=== PATIENT | male | born 1985 | race Caucasian/White ===

== ENCOUNTER 2018-06-07 14:30 | Emergency (ER) | payer MEDICAID ==
[~2018-06-07] VITALS: Ht 180.3 cm; Wt 117.9 kg
[~2018-06-07 14:30] MED LIST: ASEN10TA9 SL; CIPR500T78 PO; CYMBALTA IM; DOXY100C42 PO; INDO25CA PO; INVEGA; LORA1TAB PO; TRAM50TA2 PO
--- OUTSIDE RECORDS SUMMARY | 2018-06-07 14:35 | XMS REPORT ---
Author Author MARCIA FUNES Organization [employer] Address Unknown Phone Unavailable Care Team Providers Care Vacuum Metalizing Supervisor Name Role Phone MARCIA FUNES CP Unavailable Allergies No Known Allergies Problems Problem Type Condition ICD-9 Code Onset Dates Condition Status Problem Dizziness and giddiness 780.4 Active Problem Chronic hepatitis C without mention of hepatic coma 070.54 Active Problem Unspecified prostatitis 601.9 Active Assessment Chronic hepatitis C without mention of hepatic coma 070.54 Active Problem Reflux esophagitis 530.11 Active Problem Epistaxis 784.7 Active Medications No Known Medications Results No Known Results Summary Purpose [employer] Submission
--- OUTSIDE RECORDS SUMMARY | 2018-06-07 14:35 | XMS REPORT ---
Author Author MARCIA FUNES Organization [facility] [place] [facility] Address [address] [place] [address] Care Team Providers Care Senior Officer Name Role Phone MARCIA FUNES Unavailable PROBLEMS Type Condition ICD9-CM Code DBA02-IP Code Onset Dates Condition Status SNOMED Code Problem Prediabetes R73.03 Active 412171747 Problem Slow transit constipation K59.01 Active 80917799 Problem Gastroesophageal reflux disease without esophagitis K21.9 Active 812484883 Problem Chronic hepatitis C without hepatic coma B18.2 Active 318811962 ALLERGIES No Known Allergies ENCOUNTERS Encounter Location Date Diagnosis [address] [address] Jan, Chronic hepatitis C without hepatic coma B18.2 ; Elevated glucose R73.09 ; BMI 40.0-44.9, adult Z68.41 and Prediabetes R73.[address] [address] Feb, [address] [address] Nov, Slow transit constipation K59.[address] [address] Oct, Chronic hepatitis C without hepatic coma B18.2 and Gastroesophageal reflux disease without esophagitis K21.9 [facility] [address] [id number] Aug, Dental caries K02.9 [facility] [id number] [place] [id number] Jun, Dental examination Z01.[address] [address] Mar, Dysuria R30.0 [facility] [place] [facility] [id number] [place] [address]- [address] Feb, Gastroesophageal reflux disease without esophagitis K21.9 and Chronic hepatitis C without hepatic coma B18.2 [facility] [place] [facility] [id number] [place] [address]- 2[address] Mar, [facility] [place] [facility] [id number] [place] [address]- 0926 Mar, Chronic hepatitis C without mention of hepatic coma 070.54 [facility] [place] [facility] [id number] [place] [address]- 4387 Mar, [facility] [place] [facility] [id number] [place] [address] 47067- 4782 Nov, [facility] [place] [facility] [id number] [place] [address] 70397- 3487 Nov, [facility] [place] [facility] [id number] [place] [address] 0[address]74- 1415 Sep, [facility] [place] [facility] [id number] [place] [address] 80842- 9782 Sep, [facility] [place] [facility] [address] [address] Sep, 2014 [facility] [place] [facility] [id number] [place] [address] 05735- 8603 Sep, [facility] [place] [facility] [address] [address] 6[address] Jul, [facility] [place] [facility] [id number] [place] [address] 567194- 8737 Jul, [facility] [place] [facility] [address] [address] Jul, [facility] [place] [facility] [id number] [place] [address] 585010- 4560 Jul, [facility] [place] [facility] [address] [id number] [place] [address] 0663 Jul, [facility] [place] [facility] [address] [id number] [place] [address]- 1445 Jul, [facility] [place] [facility] [address] [id number] [place] [address]- 0929 Jul, [facility] [place] [facility] [address] [id number] [place] [address]- 2859 Jul, [facility] [place] [facility] [address] [id number] [place] [address]- 1003 Jul, [facility] [place] [facility] [address] [id number] [place] [address]- 3624 Jul, [facility] [place] [facility] [address] [id number] [place] [address]- 4883 Jul, [facility] [place] [facility] [address] [id number] [place] [address]- 2053 Jun, [facility] [place] [facility] [address] [id number] [place] [address]- 6378 Jun, [facility] [place] [facility] [address] [id number] [place] [address]- 0342 Jun, [facility] [place] [facility] [address] [id number] [place] [address]- 6919 Jun, [facility] [place] [facility] [address] [id number] [place] [address]- 7038 Jan, [facility] [place] [facility] [address] [id number] [place] [address]- 6020 Jan, [facility] [place] [facility] [address] [id number] [place] [address]- 7915 Jan, [facility] [place] [facility] [address] [id number] [place] [address]- 0236 Jan, [facility] [place] [facility] [address] [id number] [place] [address]- 2546 December, [facility] [place] [facility] [address] [id number] [place] [address]- 0747 December, [facility] [place] [facility] [address] [id number] [place] [address]- 4587 Oct, [facility] [place] [facility] [address] [id number] [place] [address]- 3011 Oct, [facility] [place] [facility] [address] [id number] [place] [address]- 4270 Oct, [facility] [place] [facility] [address] [id number] [place] [address]- 6198 Oct, [facility] [place] [facility] [address] [id number] [place] [address]- 4092 Jul, [facility] [place] [facility] [address] [id number] [place] [address]- 9756 Jul, [facility] [place] [facility] [address] [id number] [place] [address]- 3804 Jun, [facility] [place] [facility] [address] [id number] [place] [address]- 6400 Jun, [facility] [place] [facility] [address] [id number] [place] [address]- 0741 14 Apr, 2013 [facility] [place] [facility] [address] [id number] [place] [address]- 6459 Apr, [facility] [place] [facility] [address] [id number] [place] [address]- 2507 24 Feb, 2013 [facility] [place] [facility] [address] [id number] [place] [address] Nov, [facility] [place] [facility] [address] [id number] [place] [address] Oct, [facility] [place] [facility] [address] [id number] [place] [address] Oct, [facility] [place] [facility] [address] [address]- 6[address] Sep, [facility] [place] [facility] [address] [address]- 7[address] Jul, [facility] [place] [facility] [address] [address]- 25[address] Jul, [facility] [place] [facility] [address] [address]- 29[address] Jan, [facility] [facility] [address] [address]- 59[address] Nov, [facility] [facility] [address] [address]- 7[address] Nov, [facility] [facility] [address] [address]- 8146 Oct, [facility] [facility] [address] [address]- 2116 Oct, [facility] [facility] [address] [address]- 38[address] Aug, [facility] [facility] [address] [address]- 6[address] Jun, [facility] [facility] [address] [address]- 6[address] Mar, [facility] [facility] [address] [address]- 7[address] December, IMMUNIZATIONS No Known Immunizations SOCIAL HISTORY Never Assessed REASON FOR VISIT CHM, no major concerns-Juan A BORDEN PLAN OF CARE Activity Details Follow Up 1 Year Reason: VITAL SIGNS Height 69 in 2018-02-02 Weight 283.6 lbs 2018-02-02 Temperature 98.3 degrees Fahrenheit 2018-02-02 Heart Rate 86 bpm 2018-02-02 Respiratory Rate 22 2018-02-02 BMI 41.88 kg/m2 2018-02-02 Blood pressure systolic 122 mmHg 2018-02-02 Blood pressure diastolic 82 mmHg 2018-02-02 MEDICATIONS Medication Instructions Dosage Frequency Start Date End Date Duration Status Cymbalta 20 mg Orally as directed 1 capsule Active RESULTS No Results PROCEDURES Procedure Date Ordered Result Body Site GLYCATED HEMOGLOBIN TEST February 02, 2018 LAB NOT BILLED BY [facility] February 02, 2018 INSTRUCTIONS MEDICATIONS ADMINISTERED No Known Medications MEDICAL (GENERAL) HISTORY Type Description Date Medical History heptatitis C Medical History acid reflux Hospitalization History dehydration
--- OUTSIDE RECORDS SUMMARY | 2018-06-07 14:35 | XMS REPORT ---
Author Author MARCIA FUNES Organization [employer] Address Unknown Phone Unavailable Care Team Providers Care Process Controls Technician Name Role Phone MARCIA FUNES CP Unavailable Allergies No Known Allergies Problems Problem Type Condition ICD-9 Code Onset Dates Condition Status Problem Dizziness and giddiness 780.4 Active Problem Chronic hepatitis C without mention of hepatic coma 070.54 Active Problem Unspecified prostatitis 601.9 Active Problem Reflux esophagitis 530.11 Active Problem Epistaxis 784.7 Active Medications No Known Medications Results No Known Results Summary Purpose [employer] Submission
--- OUTSIDE RECORDS SUMMARY | 2018-06-07 14:35 | XMS REPORT ---
Author Author MARCIA FUNES Organization [employer] Address Unknown Phone Unavailable Care Team Providers Care Medical Chief Technician Name Role Phone MARCIA FUNES CP [...]
--- OUTSIDE RECORDS SUMMARY | 2018-06-07 14:36 | XMS REPORT ---
Author Author MARCIA FUNES [facility] [employer] Address Unknown Phone Unavailable Care Team Providers Care Customer Equipment Engineer Name Role Phone MARCIA FUNES CP Unavailable Allergies, Adverse Reactions, Alerts Substance Reaction Event Type N.K.D.A. Info Not Available Non Drug Allergy Problems Problem Type Condition Code Onset Dates Condition Status Assessment Gastroesophageal reflux disease without esophagitis K21.9 Active Assessment Chronic hepatitis C without hepatic coma B18.2 Active Problem Chronic hepatitis C without hepatic coma B18.2 Active Problem Unspecified prostatitis 601.9 Active Problem Gastroesophageal reflux disease without esophagitis K21.9 Active Problem Reflux esophagitis 530.11 Active Problem Epistaxis 784.7 Active Problem Dizziness and giddiness 780.4 Active Problem Chronic hepatitis C without mention of hepatic coma 070.54 Active Medications Medication Code System Code Instructions Start Date End Date Status Dosage Omeprazole [facility] [address]-87 20 mg Oct 14, 2014 take 1 capsule ( 20 mg) by oral route once daily before a meal Cymbalta [facility] [address]-67 20 mg subcutaneously as directed Inject Procedures Procedure Coding System Code Date Office Visit, Est Pt., Level 3 CPT-4 55407 March 09, 2016 VENIPUNCT, ROUTINE* CPT-4 39201 March 09, 2016 LAB NOT BILLED BY [facility] CPT-4 NOBLL March 09, 2016 Vital Signs Date/Time: March 09, 2016 Cardiac Monitoring Heart Rate 90 bpm Weight 262 lbs Height 69 in Blood Pressure Diastolic 88 mmHg Blood Pressure Systolic 140 mmHg Results No Known Results Summary Purpose [employer] Submission
--- OUTSIDE RECORDS SUMMARY | 2018-06-07 14:36 | XMS REPORT ---
Author Author MARCIA FUNES Organization [facility] Address [address] [place] [address] Care Team Providers Care Dust Box Tender Name Role Phone MARCIA FUNES Unavailable PROBLEMS Type Condition ICD9-CM Code VAT96-DQ Code Onset Dates Condition Status SNOMED Code Problem Slow transit constipation K59.01 Active 93156187 Problem Gastroesophageal reflux disease without esophagitis K21.9 Active 098492265 Problem Chronic hepatitis C without hepatic coma B18.2 Active 806994871 ALLERGIES No Information ENCOUNTERS Encounter Location Date Diagnosis [place] [address] [address] Nov, [facility] [address] [address] Feb, [facility] [address] [address]- [address] Nov, Slow transit constipation K59.01 [facility] [address] [address] Oct, Chronic hepatitis C without hepatic coma B18.2 and Gastroesophageal reflux disease without esophagitis K21.9 [facility] [id number] [place] [id number] Aug, Dental caries K02.9 [facility] [address] [id number] Jun, Dental examination Z01.20 [facility] [address] [address]- [address] Mar, Dysuria R30.0 [place] [address] [address] Feb, Gastroesophageal reflux disease without esophagitis K21.9 and Chronic hepatitis C without hepatic coma B18.2 [facility] [address] [address]- 27[address] Mar, [facility] [id number] [place] [address]- 5947 Mar, Chronic hepatitis C without mention of hepatic coma 070.54 [facility] [id number] [place] [address]- 0206 Mar, [facility] [address] [address]- 15[address] Nov, [facility] [id number] [place] [address] 18125- 7598 Nov, [facility] [id number] [place] [address] 39763- 6760 Sep, [facility] [id number] [place] [address] 92725- 5344 Sep, [facility] [address] [address]- 0443 Sep, [facility] [id number] [address]- 7091 Sep, [facility] [id number] [address]- 0726 Jul, [facility] [id number] [address]- 7473 Jul, [facility] [id number] [address]- 7056 Jul, [facility] [id number] [place] [address]- 6634 Jul, [facility] [id number] [address]- 0605 Jul, [facility] [id number] [address]- 2329 Jul, [facility] [place] [facility] [address] [id number] [place] [address]- 2163 Jul, [facility] [place] [facility] [address] [id number] [place] [address]- 4835 Jul, [facility] [place] [facility] [address] [id number] [place] [address] Jul, [facility] [place] [facility] [address] [id number] [place] [address]- 8379 Jul, [facility] [place] [facility] [address] [id number] [place] [address]- 4429 Jul, [facility] [place] [facility] [address] [id number] [place] [address]- 3082 Jun, [facility] [place] [facility] [address] [id number] [place] [address]- 5916 Jun, [facility] [place] [facility] [address] [id number] [place] [address]- 7777 Jun, [facility] [place] [facility] [address] [id number] [place] [address]- 6811 Jun, [facility] [place] [facility] [address] [id number] [place] [address]- 9780 Jan, [facility] [place] [facility] [address] [id number] [place] [address]- 7969 Jan, [facility] [place] [facility] [address] [id number] [place] [address]- 2520 Jan, [facility] [place] [facility] [address] [id number] [place] [address]- 9708 Jan, [facility] [place] [facility] [address] [id number] [place] [address]- 1098 December, [facility] [place] [facility] [address] [id number] [place] [address]- 5755 December, [facility] [place] [facility] [address] [id number] [place] [address]- 6505 12 Oct, 2013 [facility] [address] [id number] [place] [address]- 4578 Oct, [facility] [address] [id number] [place] [address]- 8094 Oct, [facility] [address] [id number] [place] [address]- 6855 Oct, [facility] [address] [id number] [place] [address]- 6514 Jul, [facility] [address] [id number] [place] [address] Jul, [facility] [address] [id number] [place] [address]- 0411 Jun, [facility] [address] [id number] [place] [address]- 6346 Jun, [facility] [address] [id number] [place] [address]- 6132 14 Apr, 2013 [facility] [address] [id number] [place] [address]- 2208 Apr, [facility] [address] [id number] [place] [address]- 0061 24 Feb, 2013 [facility] [address] [id number] [place] [address]- 4838 Nov, [facility] [address] [id number] [place] [address]- 8657 Oct, [facility] [address] [id number] [place] [address]- 4242 Oct, [facility] [address] [id number] [place] [address]- 8500 Sep, [facility] [address] [id number] [place] [address]- 9816 Jul, [facility] [id number] [address]- [address] Jul, [facility] [address] [address]- 25[address] Jan, [facility] [id number] [address]- 2866 Nov, [facility] [address] [address]- 2546 Nov, [facility] [id number] [address]- 8416 Oct, [facility] [address] [address]- 2546 Oct, [facility] [id number] [address]- 9466 Aug, [facility] [address] [address]- 8576 Jun, [facility] [id number] [address]- 6[address] Mar, [facility] [id number] [address]- 8[address] December, IMMUNIZATIONS No Known Immunizations SOCIAL HISTORY Never Assessed REASON FOR VISIT infected tooth PLAN OF CARE VITAL SIGNS MEDICATIONS Medication Instructions Dosage Frequency Start Date End Date Duration Status Amoxicillin 500 mg Orally 3 times a day 1 capsule 8h Feb, Mar, 07 days Active RESULTS No Results PROCEDURES No Known procedures INSTRUCTIONS MEDICATIONS ADMINISTERED No Known Medications MEDICAL (GENERAL) HISTORY Type Description Date Medical History heptatitis C Medical History acid reflux Hospitalization History dehydration
--- OUTSIDE RECORDS SUMMARY | 2018-06-07 14:36 | XMS REPORT ---
Author Author ARLINE LEÓN [facility] Address Unknown Care Team Providers Care Field Coil Winder Name Role Phone ARLINE LEÓN Unavailable PROBLEMS Type Condition ICD9-CM Code OHR21-TO Code Onset Dates Condition Status SNOMED Code Problem Slow transit constipation K59.01 Active 66298260 Problem Gastroesophageal reflux disease without esophagitis K21.9 Active 431783877 Problem Chronic hepatitis C without hepatic coma B18.2 Active 014195768 ALLERGIES Substance Reaction Event Type Date Status N.K.D.A. Unknown Non Drug Allergy Aug, Unknown SOCIAL HISTORY No smoking Hx information available PLAN OF CARE Activity Details Follow Up prn Reason:PROPHY VITAL SIGNS Height 69 in 2016-09-23 Blood pressure systolic 122 mmHg 2016-09-23 Blood pressure diastolic 90 mmHg 2016-09-23 MEDICATIONS Medication Instructions Dosage Frequency Start Date End Date Duration Status Cymbalta 20 mg Orally as directed 1 capsule Active [place] 5-325 MG Orally every 6 hrs 1 tablet as needed 6h 4 days Active Omeprazole 20 mg take 1 capsule (20 mg) by oral route once daily before a meal Sep, Active Clindamycin HCl 150 MG Orally every 6 hrs 2 capsules 6h 7 days Active RESULTS No Results PROCEDURES Procedure Date Ordered Related Diagnosis Body Site SURG REMOVAL ERUPTED TOOTH Sep 23, 2016 IMMUNIZATIONS No Known Immunizations
--- OUTSIDE RECORDS SUMMARY | 2018-06-07 14:36 | XMS REPORT | Continuity of Care Document ---
Author Author [facility] Address Unknown Phone Unavailable Allergies Active Description Code Type Severity Reaction Onset Reported/Identified Relationship to Patient Clinical Status Yes No Known Drug Allergies [id number] Drug Allergy Unknown N/A 08/04/2010 Medications There is no data. Problems Date Dx Coded Attending Type Code Diagnosis Diagnosed By 01/12/2010 KURT LEES DDS 111.0 TINEA VERSICOLOR 01/12/2010 VICTORINO CHICAS DO 111.0 TINEA VERSICOLOR 01/12/2010 111.0 TINEA VERSICOLOR 01/12/2010 VICTORINO CHICAS DO 111.0 TINEA VERSICOLOR 01/12/2010 RADHA CORNEJO MD 111.0 TINEA VERSICOLOR 01/12/2010 MARCIA FUNES MD 111.0 TINEA VERSICOLOR 01/12/2010 MARIN JUAREZ, MARCIA 111.0 TINEA VERSICOLOR 01/12/2010 MARIN JUAREZ, MARCIA 111.0 TINEA VERSICOLOR 01/12/2010 MARIN JUAREZ, MARCIA 111.0 TINEA VERSICOLOR 01/12/2010 MARIN JUAREZ, MARCIA 111.0 TINEA VERSICOLOR 11/19/2010 KURT LEES DDS 295.00 SIMPLE TYPE SCHIZOPHRENIA UNSPECIFIED STATE 11/19/2010 VICTORINO CHICAS DO 295.00 SIMPLE TYPE SCHIZOPHRENIA UNSPECIFIED STATE 11/19/2010 295.00 SIMPLE TYPE SCHIZOPHRENIA UNSPECIFIED STATE 11/19/2010 VICTORINO CHICAS DO 295.00 SIMPLE TYPE SCHIZOPHRENIA UNSPECIFIED STATE 11/19/2010 RADHA CORNEJO MD 295.00 SIMPLE TYPE SCHIZOP[place]ENIA UNSPECIFIED STATE 11/19/2010 MARCIA FUNES MD 295.00 SIMPLE TYPE SCHIZOPHRENIA UNSPECIFIED STATE 11/19/2010 MARCIA FUNES MD 295.00 SIMPLE TYPE SCHIZOPHRENIA UNSPECIFIED STATE 11/19/2010 MARCIA FUNES MD 295.00 SIMPLE TYPE SCHIZOPHRENIA UNSPECIFIED STATE 11/19/2010 MARCIA FUNES MD 295.00 SIMPLE TYPE [place]IZOPHRENIA UNSPECIFIED STATE 11/19/2010 MARCIA FUNES MD 295.00 SIMPLE TYPE SCHIZOPHRENIA UNSPECIFIED STATE 04/08/2011 NABEEL DDS, KURT E 295.30 P SCHIZO PARANOID UNSPECIFIED 04/08/2011 NABEEL COOKS, KURT E V58.69 MEDICATION HIGH RISK 04/08/2011 HILARY CHICAS DOEN F 295.30 P SCHIZO PARANOID UNSPECIFIED 04/08/2011 JUAN FRANCISCO LYNNE VICTORINO F V58.69 MEDICATION HIGH RISK 04/08/2011 295.30 P SCHIZO PARANOID UNSPECIFIED 04/08/2011 V58.69 MEDICATION HIGH RISK 04/08/2011 HILARY CHICAS DOEN F 295.30 P SCHIZO PARANOID UNSPECIFIED 04/08/2011 VICTORINO CHICAS DO F V58.69 MEDICATION HIGH RISK 04/08/2011 CLEMENTE JUAREZ, RADHA Merchant 295.30 P SCHIZO PARANOID UNSPECIFIED 04/08/2011 RADHA CORNEJO MD V58.69 MEDICATION HIGH RISK 04/08/2011 MARCIA FUNES MD 295.30 P SCHIZO PARANOID UNSPECIFIED 04/08/2011 MARCIA FUNES MD V58.69 MEDICATION HIGH RISK 04/08/2011 MARCIA FUNES MD 295.30 P SCHIZO PARANOID UNSPECIFIED 04/08/2011 MARCIA FUNES MD V58.69 MEDICATION HIGH RISK 04/08/2011 MARCIA FNUES MD 295.30 P SCHIZO PARANOID UNSPECIFIED 04/08/2011 MARCIA FUNES MD V58.69 MEDICATION HIGH RISK 04/08/2011 MARCIA FUNES MD 295.30 P SCHIZO PARANOID UNSPECIFIED 04/08/2011 MARCIA FUNES MD V58.69 MEDICATION HIGH RISK 04/08/2011 MARCIA FUNES MD 295.30 P SCHIZO PARANOID UNSPECIFIED 04/08/2011 MARCIA FUNES MD V58.69 MEDICATION HIGH RISK 07/27/2011 NABEEL MORRIS, KURT E 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 07/27/2011 JUAN FRANCISCO LYNNE VICTORINO F 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 07/27/2011 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 07/27/2011 JUAN FRANCISCO LYNNE VICTORINO F 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 07/27/2011 RADHA CORNEJO MD 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 07/27/2011 MARCIA FUNES MD 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 07/27/2011 MARCIA FUNES MD 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 07/27/2011 MARCIA FUNES MD 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 07/27/2011 MARCIA FUNES MD 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 07/27/2011 MARCIA FUNES MD 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 10/28/2011 NABEEL DDS, KURT E 601.9 PROSTATITIS UNSPECIFIED 10/28/2011 VICTORINO CHICAS DO 601.9 PROSTATITIS UNSPECIFIED 10/28/2011 601.9 PROSTATITIS UNSPECIFIED 10/28/2011 VICTORINO CHICAS DO F 601.9 PROSTATITIS UNSPECIFIED 10/28/2011 RADHA CORNEJO MD 601.9 PROSTATITIS UNSPECIFIED 10/28/2011 MARCIA FUNES MD 601.9 PROSTATITIS UNSPECIFIED 10/28/2011 MARCIA FUNES MD 601.9 PROSTATITIS UNSPECIFIED 10/28/2011 MARCIA FUNES MD 601.9 PROSTATITIS UNSPECIFIED 10/28/2011 MARCIA FUNES MD 601.9 PROSTATITIS UNSPECIFIED 10/28/2011 MARCIA FUNES MD 601.9 PROSTATITIS UNSPECIFIED 08/05/2012 Ot 782.2 08/18/2012 Ot 305.1 08/18/2012 Ot 786.50 08/18/2012 Ot 786.52 09/07/2012 Ot 597.80 09/07/2012 Ot 788.7 10/10/2013 SHANICE STEVENS Ot 883.0 10/10/2013 SHANICE STEVENS Ot E000.8 10/10/2013 SHANICE STEVENS Ot E015.0 10/10/2013 SHANICE STEVENS Ot E849.0 10/10/2013 SHANICE STEVENS Ot E920.8 10/10/2013 SHANICE STEVENS Ot V06.1 11/02/2013 RADHA CORNEJO MD Ot 070.70 11/02/2013 RADHA CORNEJO MD Ot 276.51 11/02/2013 RADHA CORNEJO MD Ot 305.00 11/02/2013 RADHA CORNEJO MD Ot 305.1 11/02/2013 RADHA CORNEJO MD Ot 305.20 11/02/2013 RADHA CORNEJO MD Ot 305.73 11/02/2013 RADHA CORNEJO MD Ot 571.8 11/02/2013 RADHA CORNEJO MD Ot 782.4 11/02/2013 RADHA CORNEJO MD Ot 787.01 05/22/2014 JOSÉ LUIS LYNNE KESHAWN Ronald Ot 788.1 05/22/2014 KESHAWN ORDONEZ DO Ot 789.09 07/01/2014 MARCIA FUNES MD 780.4 DIZZINESS AND GIDDINESS 07/01/2014 MARCIA FUNES MD 780.4 DIZZINESS AND GIDDINESS 07/01/2014 MARCIA FUNES MD 780.4 DIZZINESS AND GIDDINESS 07/01/2014 MARCIA FUNES MD 780.4 DIZZINESS AND GIDDINESS 08/06/2014 MARCIA FUNES MD 070.54 HEPATITIS C CHRONIC 08/06/2014 MARCIA FUNSE MD 070.54 HEPATITIS C CHRONIC 08/19/2015 JULITA JUAREZ, LOPEZ Parson Ot F17.210 08/19/2015 LOPEZ CANCINO MD Ot J02.9 08/19/2015 LOPEZ CANCINO MD Ot J40 08/19/2015 LOPEZ CANCINO MD Ot R11.10 Procedures Code Description [place] [address] ROUTINE VENIPUNCTURE 11/16/2012 21900 LIPID PANEL 11/16/2012 58461 GLUCOSE 11/16/2012 85979 ROUTINE VENIPUNCTURE 07/01/2014 08734 A1C (IN-HOUSE) 07/01/2014 45872 CBC 07/01/2014 0210703 GFR CALC (RESULT ONLY) 07/01/2014 38597 CMP 07/01/2014 34399 ROUTINE VENIPUNCTURE 08/07/2014 04916 LIPID PANEL 08/07/2014 57826 LIPASE 08/07/2014 11024 PT/INR 08/07/2014 61467 HIV ANTIBODIES (RML) 08/07/2014 57220 HEP C PCR QUANT W/TONYA 08/09/2014 17129 AMERITOX 08/12/2014 85966 GENOTYPE DNA HEPATITIS C 08/12/2014 Results Test Result Range Comp. Metabolic Panel (14) - 11/11/16 11:28 Glucose, Serum 126 mg/dL 65-99 BUN 10 mg/dL 6-20 Creatinine, Serum 1.16 mg/dL 0.76-1.27 eGFR If NonAfricn Am 84 mL/min/1.73 >59 eGFR If Africn Am 97 mL/min/1.73 >59 BUN/Creatinine Ratio 9 8-19 Sodium, Serum 140 mmol/L 134-144 Potassium, Serum 4.3 mmol/L 3.5-5.2 Chloride, Serum 100 mmol/L 96-106 Carbon Dioxide, Total 19 mmol/L 18-29 Calcium, Serum 9.6 mg/dL 8.7-10.2 Protein, Total, Serum 7.0 g/dL 6.0-8.5 Albumin, Serum 4.4 g/dL 3.5-5.5 Globulin, Total 2.6 g/dL 1.5-4.5 A/G Ratio 1.7 1.2-2.2 Bilirubin, Total 0.7 mg/dL 0.0-1.2 Alkaline Phosphatase, S 99 IU/L 39-117 AST (SGOT) 132 IU/L 0-40 ALT (SGPT) 263 IU/L 0-44 CMP - 02/02/18 11:12 GLUCOSE 90 mg/dL 65-99 UREA NITROGEN (BUN) 14 mg/dL 7-25 CREATININE 1.14 mg/dL 0.60-1.35 eGFR NON-AFR. [place] 85 mL/min/1.73m2 > OR=60 eGFR 99 mL/min/1.73m2 > OR=60 BUN/CREATININE RATIO NOT APPLICABLE (calc) 6-22 SODIUM 140 mmol/L 135-146 POTASSIUM 4.0 mmol/L 3.5-5.3 CHLORIDE 104 mmol/L 98-110 CARBON DIOXIDE 25 mmol/L 20-31 CALCIUM 10.1 mg/dL 8.6-10.3 PROTEIN, TOTAL 7.7 g/dL 6.1-8.1 ALBUMIN 4.7 g/dL 3.6-5.1 GLOBULIN 3.0 g/dL (calc) 1.9-3.7 ALBUMIN/GLOBULIN RATIO 1.6 (calc) 1.0-2.5 BILIRUBIN, TOTAL 0.8 mg/dL 0.2-1.2 ALKALINE PHOSPHATASE 94 U/L 40-115 AST 165 U/L 10-40 ALT 328 U/L 9-46 Encounters ACCT No. Visit Date/Time Discharge Status Pt. Type Provider Facility Loc./Unit Complaint [id number] 08/19/2014 15:01:00 08/19/2014 23:59:59 CLS Outpatient MARCIA FUNES MD [id number] 08/07/2014 10:46:00 08/07/2014 23:59:59 CLS Outpatient MARCIA FUNES MD [id number] 07/01/2014 15:10:00 07/01/2014 23:59:59 CLS Outpatient MARCIA FUNES MD [id number] 07/01/2014 15:10:00 07/01/2014 23:59:59 CLS Outpatient MARCIA FUNES MD [id number] 02/22/2014 14:59:00 02/22/2014 23:59:59 CLS Outpatient MARCIA FUNES MD [id number] 12/05/2013 16:19:00 12/05/2013 23:59:59 CLS Outpatient RADHA CORNEJO MD [id number] 05/12/2013 11:55:00 05/12/2013 23:59:59 CLS Outpatient VICTORINO CHICAS DO [id number] 11/16/2012 15:27:00 11/16/2012 23:59:59 CLS Outpatient VICTORINO CHICAS DO [id number] 01/04/2012 13:39:00 01/04/2012 23:59:59 CLS Outpatient KURT LEES DDS [id number] 12/20/2012 14:38:00 Document Registration [id number] 08/19/2015 08:44:00 08/19/2015 09:20:00 DIS Emergency LOPEZ CANCINO MD [facility] ER [id number] 05/22/2014 11:13:00 05/22/2014 13:51:00 DIS Emergency KESHAWN ORDONEZ DO [facility] ER [id number] 11/01/2013 12:36:00 11/02/2013 13:00:00 DIS Inpatient RADHA CORNEJO MD [address] [id number] 10/10/2013 14:52:00 10/10/2013 16:38:00 DIS Emergency KELLY BUTLER, SHANICE Wu [facility] [id number] 09/07/2012 10:20:00 Document Registration [id number] 08/18/2012 16:26:00 Document Registration [id number] 08/05/2012 11:42:00 Document Registration [id number] 11/12/2016 08:37:00 Document Registration [id number] 02/02/2018 10:20:00 02/02/2018 23:59:59 CLS Out[facility] MARIN [facility] [place] [id number] 02/02/2018 10:20:00 Document Registration
--- OUTSIDE RECORDS SUMMARY | 2018-06-07 14:36 | XMS REPORT ---
Author Author ARLINE LEÓN [facility] Address Unknown Care Team Providers Care Parachute Cushion Installer Name Role Phone ARLINE LEÓN Unavailable PROBLEMS Type Condition ICD9-CM Code IGI27-CV Code Onset Dates Condition Status SNOMED Code Problem Slow transit constipation K59.01 Active 54804426 Problem Gastroesophageal reflux disease without esophagitis K21.9 Active 158316742 Problem Chronic hepatitis C without hepatic coma B18.2 Active [id number] ALLERGIES Substance Reaction Event Type Date Status N.K.D.A. Unknown Non Drug Allergy Jun, Unknown SOCIAL HISTORY No smoking Hx information available PLAN OF CARE Activity Details Follow Up prn Reason:surgical extraction #30 1 hour VITAL SIGNS MEDICATIONS Medication Instructions Dosage Frequency Start Date End Date Duration Status Omeprazole 20 mg take 1 capsule (20 mg) by oral route once daily before a meal Sep, Active [place] 5-325 MG Orally every 6 hrs 1 tablet as needed 6h 4 days Active Clindamycin HCl 150 MG Orally every 6 hrs 2 capsules 6h 7 days Active Cymbalta 20 mg Orally as directed 1 capsule Active RESULTS No Results PROCEDURES Procedure Date Ordered Related Diagnosis Body Site LTD ORAL EVALUATION - PROBLEM FOCUS Jul 15, 2016 INTRAORL-PERIAPICAL 1 FILM 77795 Jul 15, 2016 BITEWING - SINGLE FILM Jul 15, 2016 IMMUNIZATIONS No Known Immunizations
--- OUTSIDE RECORDS SUMMARY | 2018-06-07 14:36 | XMS REPORT ---
Author Author MARCIA FUNES [facility] Address [address] [place] [address] Care Team Providers Care Fig Bar Machine Operator Name Role Phone MARCIA FUNES Unavailable PROBLEMS Type Condition ICD9-CM Code FEC10-NB Code Onset Dates Condition Status SNOMED Code Problem Slow transit constipation K59.01 Active 21323921 Problem Gastroesophageal reflux disease without esophagitis K21.9 Active 060084356 Problem Chronic hepatitis C without hepatic coma B18.2 Active 742008165 ALLERGIES No Known Allergies SOCIAL HISTORY Never Assessed PLAN OF CARE Activity Details Follow Up 1 Year Reason: VITAL SIGNS Height 69 in 2016-11-11 Weight 257.4 lbs 2016-11-11 Temperature 98.5 degrees Fahrenheit 2016-11-11 Heart Rate 68 bpm 2016-11-11 Respiratory Rate 20 2016-11-11 BMI 38.01 kg/m2 2016-11-11 Blood pressure systolic 126 mmHg 2016-11-11 Blood pressure diastolic 72 mmHg 2016-11-11 MEDICATIONS Medication Instructions Dosage Frequency Start Date End Date Duration Status Omeprazole 20 mg take 1 capsule (20 mg) by oral route once daily before a meal Sep, Active Cymbalta 20 mg Orally as directed 1 capsule Active RESULTS Name Result Date Reference Range [facility] 2016-11-11 Glucose, Serum 126 65-99 BUN 10 6-20 Creatinine, Serum 1.16 0.76-1.27 eGFR If NonAfricn Am 84 >59 eGFR If Africn Am 97 >59 BUN/Creatinine Ratio 9 8-19 Sodium, Serum 140 134-144 Potassium, Serum 4.3 3.5-5.2 Chloride, Serum 100 96-106 Carbon Dioxide, Total 19 18-29 Calcium, Serum 9.6 8.7-10.2 Protein, Total, Serum 7.0 6.0-8.5 Albumin, Serum 4.4 3.5-5.5 Globulin, Total 2.6 1.5-4.5 A/G Ratio 1.7 1.2-2.2 Bilirubin, Total 0.7 0.0-1.2 Alkaline Phosphatase, S 99 39-117 AST (SGOT) 132 0-40 ALT (SGPT) 263 0-44 PROCEDURES Procedure Date Ordered Result Body Site VENIPUNCT, ROUTINE* November 11, 2016 COMPREHEN METABOLIC PANEL November 11, 2016 IMMUNIZATIONS No Known Immunizations MEDICAL (GENERAL) HISTORY Type Description Date Medical History heptatitis C Medical History acid reflux Hospitalization History dehydration
[2018-06-07] MEDS ORDERED: KETOROLAC 60 MG/2 ML VIAL IM ONE (14:45)
[2018-06-07] MEDS ORDERED: ORPHENADRINE 60 MG/2 ML (NORFLEX) AMP IM ONE (14:45)
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
[2018-06-07] MEDS ORDERED: CYCL5TAB PO (14:51)
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
[2018-06-07 16:02] VITALS: BP 136/82
== END 2018-06-07 16:02 | disposition home or self-care (01) ==
LOC: EDUNIT# 14:30 → ER 14:31
DX: S16.1XXA Strain of muscle, fascia and tendon at neck level, initial encounter (principal); R40.2142 Coma scale, eyes open, spontaneous, at arrival to emergency department; R40.2252 Coma scale, best verbal response, oriented, at arrival to emergency department; R40.2362 Coma scale, best motor response, obeys commands, at arrival to emergency department; V43.53XA Car driver injured in collision with pick-up truck in traffic accident, initial encounter
CPT/HCPCS: 72072; 72125

== ENCOUNTER 2020-07-27 07:13 | Emergency (ER) | payer MEDICAID ==
[~2020-07-27] VITALS: Ht 175 cm; Wt 113.0 kg
[~2020-07-27 07:13] MED LIST changes: +CYCL5TAB PO
[2020-07-27] MEDS ORDERED: LACTATED RINGERS 1,000 ML IV ONE (07:27)
[2020-07-27] MEDS ORDERED: KETOROLAC 30 MG/ML VIAL IVP STA (07:27)
--- NOTE | 2020-07-27 07:38 | ED General ---
General Chief Complaint: Chest Pain Stated Complaint: CHEST PAIN Nursing Triage Note: ARRIVED VIA EMS FROM HOME WITH COMPLAINTS OF CP AND SOA FOR X2 WEEKS. RECENTLY DX WITH HEP C. Nursing Sepsis Screen: No Definite Risk Source of Information: Patient Exam Limitations: No Limitations History of Present Illness Date Seen by Provider: Jul 27, 2020 Time Seen by Provider: 07:15 Initial Comments Here with report of left upper chest wall pain that is sharp and has been going on for 2 weeks. Started treatment for hepatitis C 2 weeks ago. Woke up this morning short of breath and states that he is feeling weak and dizzy. Also noted to have low-grade fever by EMS. Patient denies contact with COVID-19 but does admit that he does go out in the community. Denies nausea, vomiting or sweating. Denies other complaints. He has not taken anything for the fever or chest discomfort. Timing/Duration: 12 Hours (Shortness of air), Other (Chest discomfort) Severity: Mild Associated Systoms: Chest Pain; No Cough; Fever/Chills; No Headaches; Shortness of Air, Weakness Allergies and Home Medications Allergies Coded Allergies: No Known Drug Allergies (Unverified , 08/04/10) Home Medications Cyclobenzaprine HCl 5 Mg Tablet, 5 MG PO TID Prescribed by: REJI LUNA on 06/07/18 1451 Doxycycline Monohydrate 100 Mg Capsule, 100 MG PO BID Prescribed by: LOPEZ CANCINO on 08/19/15 0908 [Cymbalta] , Unknown Dose IM MONTHLY, (Reported) Patient Home Medication List Home Medication List Reviewed: Yes Review of Systems Review of Systems Constitutional: see HPI, dizziness, fever, weakness EENTM: no symptoms reported Respiratory: short of breath Cardiovascular: chest pain; No edema Gastrointestinal: No abdominal pain, No nausea, No vomiting Genitourinary: no symptoms reported Musculoskeletal: No back pain; muscle pain Skin: no symptoms reported Psychiatric/Neurological: No Symptoms Reported Hematologic/Lymphatic: No Symptoms Reported All Other Systems Reviewed Negative Unless Noted: Yes Past Juwpgrf-Hwqmuy-Vsylct Hx Past Med/Social Hx: Reviewed Nursing Past Med/Soc Hx Patient Social History Alcohol Use: Denies Use Recreational Drug Use: No Smoking Status: Current Everyday Smoker Type Used: Cigarettes Recent Foreign Travel: No Contact w/Someone Who Travel: No Recent Infectious Disease Expo: No Recent Hopitalizations: No Immunizations Up To Date Tetanus Booster (TDap): More than 5yrs Past Medical History Surgeries: No Respiratory: No Cardiac: No Neurological: No Reproductive Disorders: No Genitourinary: No Gastrointestinal: Yes Hepatitis Musculoskeletal: No Endocrine: No HEENT: No Cancer: No Psychosocial: Yes Bipolar, Schizophrenia, Depression Integumentary: No Blood Disorders: No Family Medical History Patient reports no known family medical history. Physical Exam Vital Signs Vital Signs - First Documented 07/27/20 07:13 Temp 36.6 Pulse 63 Resp 16 B/P (MAP) 136/73 (94) Pulse Ox 96 O2 Delivery Room Air Capillary Refill : Less Than 3 Seconds Height, Weight, BMI Height: 5'11.00" Weight: 260lbs. 10.0oz. 117.602854ic; 36.00 BMI Method:Stated General Appearance: No Apparent Distress, WD/WN HEENT: PERRL/EOMI, Pharynx Normal Neck: Non Tender, Supple Respiratory: Lungs Clear, Normal Breath Sounds Cardiovascular: Regular Rate, Rhythm, No Murmur Gastrointestinal: Non Tender, Soft Back: Normal Inspection, No CVA Tenderness, No Vertebral Tenderness Extremity: Normal Range of Motion, Non Tender Neurologic/Psychiatric: Alert, Oriented x3 Skin: Normal Color, Warm/Dry Progress/Results/Core Measures Suspected Sepsis Recent Fever Within 48 Hours: Yes Infection Criteria Present: Suspected New Infection New/Unexplained Altered Menta: No Sepsis Screen: No Definite Risk SIRS Temperature: Pulse: 63 Respiratory Rate: 16 Laboratory Tests 07/27/20 07:15: White Blood Count 9.2 Blood Pressure 136 /73 Mean: 94 Laboratory Tests 07/27/20 07:15: Creatinine 1.20, Platelet Count 243, Total Bilirubin 0.6 Results/Orders Lab Results Laboratory Tests Test 07/27/20 07:15 Range/Units White Blood Count 9.2 4.3-11.0 10^3/uL Red Blood Count 5.63 H 4.30-5.52 10^6/uL Hemoglobin 16.8 13.3-17.7 g/dL Hematocrit 49 40-54 % Mean Corpuscular Volume 88 80-99 fL Mean Corpuscular Hemoglobin 30 25-34 pg Mean Corpuscular Hemoglobin Concent 34 32-36 g/dL Red Cell Distribution Width 13.1 10.0-14.5 % Platelet Count 243 130-400 10^3/uL Mean Platelet Volume 10.2 9.0-12.2 fL Immature Granulocyte % (Auto) 0 % Neutrophils (%) (Auto) 64 42-75 % Lymphocytes (%) (Auto) 29 12-44 % Monocytes (%) (Auto) 5 0-12 % Eosinophils (%) (Auto) 2 0-10 % Basophils (%) (Auto) 1 0-10 % Neutrophils # (Auto) 5.8 1.8-7.8 10^3/uL Lymphocytes # (Auto) 2.7 1.0-4.0 10^3/uL Monocytes # (Auto) 0.4 0.0-1.0 10^3/uL Eosinophils # (Auto) 0.2 0.0-0.3 10^3/uL Basophils # (Auto) 0.1 0.0-0.1 10^3/uL Immature Granulocyte # (Auto) 0.0 0.0-0.1 10^3/uL D-Dimer 0.33 0.00-0.49 UG/ML Sodium Level 141 135-145 MMOL/L Potassium Level 4.3 3.6-5.0 MMOL/L Chloride Level 107 98-107 MMOL/L Carbon Dioxide Level 20 L 21-32 MMOL/L Anion Gap 14 5-14 MMOL/L Blood Urea Nitrogen 12 7-18 MG/DL Creatinine 1.20 0.60-1.30 MG/DL Estimat Glomerular Filtration Rate > 60 BUN/Creatinine Ratio 10 Glucose Level 187 H 70-105 MG/DL Calcium Level 8.8 8.5-10.1 MG/DL Corrected Calcium 8.7 8.5-10.1 MG/DL Total Bilirubin 0.6 0.1-1.0 MG/DL Aspartate Amino Transf (AST/SGOT) 18 5-34 U/L Alanine Aminotransferase (ALT/SGPT) 23 0-55 U/L Alkaline Phosphatase 96 40-136 U/L Troponin I < 0.028 <0.028 NG/ML C-Reactive Protein High Sensitivity 0.08 0.00-0.50 MG/DL Total Protein 7.2 6.4-8.2 GM/DL Albumin 4.1 3.2-4.5 GM/DL My Orders Orders - KATHARINA ALEXANDER MD Lactated Ringers (Lr 1000 Ml Iv Solution (07/27/20 07:27) Ketorolac Injection (Toradol Injection) (07/27/20 07:27) Cbc With Automated Diff (07/27/20 07:28) Comprehensive Metabolic Panel (07/27/20 07:28) Hs C Reactive Protein (07/27/20 07:28) Fibrin Degradation Products (07/27/20 07:28) Troponin I (07/27/20 07:28) Chest 1 View, Ap/Pa Only (07/27/20 07:28) Ekg Tracing (07/27/20 07:28) Coronavirus Sars-Cov-2 So 2018 (07/27/20 07:28) Medications Given in ED Current Medications Medications Dose Ordered Sig/Rolando Route Start Time Stop Time Status Last Admin Dose Admin Lactated Ringer's 1,000 ml @ 0 mls/hr Q0M ONCE IV 07/27/20 07:27 07/27/20 07:28 DC 07/27/20 07:34 1,000 MLS/HR Vital Signs/I&O 07/27/20 07:13 Temp 36.6 Pulse 63 Resp 16 B/P (MAP) 136/73 (94) Pulse Ox 96 O2 Delivery Room Air Capillary Refill : Less Than 3 Seconds Blood Pressure Mean: 94 Progress Note : Progress Note Seen and evaluated. IV established by EMS. Labs, chest x-ray, EKG, Toradol 30 mg IV and LR 1 L bolus ordered. We will do COVID-19 testing given his history. This was discussed with the patient. He agrees. Monitor patient. 0842: Patient resting comfortably without distress. No significant findings on lab or x-ray or EKG. Discharged home with return precautions. Patient verbalized understanding of instructions and agreement with plan. ECG Initial ECG Impression Date: Jul 27, 2020 Initial ECG Impression Time: 07:22 Initial ECG Rate: 64 Initial ECG Rhythm: Normal Sinus Initial ECG Impression: Normal Initial ECG Comparisson: Unchanged (08/18/2020) Comment Sinus rhythm with normal axis. No evidence of ST elevation ID. Interpreted by me. Diagnostic Imaging Diagonstic Imaging: Xray Plain Films/CT/US/NM/MRI: chest Comments [facility] [place], [place] NAME: ADAM BENITES [facility] REC#: [id number] PT STATUS: REG ER : 1985 PHYSICIAN: KATHARINA ALEXANDER MD ADMIT DATE: 07/27/20/ER Signed Date of Exam:07/27/20 CHEST 1 VIEW, AP/PA ONLY INDICATION: Chest pain. Comparison is made with prior examination from 08/18/2012. FINDINGS: The heart size, mediastinal configuration, and pulmonary vascularity are within normal limits. There is no pleural effusion, pneumothorax, or pneumonia. The osseous structures are unremarkable. IMPRESSION: No acute cardiopulmonary abnormality. Dictated by: Dictated on workstation # [id number] Dict: 07/27/20822 Trans: 07/27/20828 [facility] [id number] Interpreted by: STANLEY MONTERO MD Electronically signed by: STANLEY MONTERO MD 07/27/20828 Departure Impression Primary Impression: Chest pain Qualified Codes: R07.9 - Chest pain, unspecified Additional Impression: Person under investigation for COVID-19 Disposition: 01 HOME, SELF-CARE Condition: Stable Departure-Patient Inst. Decision time for Depature: 08:40 Referrals: [facility][1[facility] [place] (PCP/Family) Primary Care Physician Patient Instructions: Chest Pain (DC), Coronavirus Disease 2019 (COVID-19) (DC) Add. Discharge Instructions: All discharge instructions reviewed with patient and/or family. Voiced understanding. Drink plenty of fluids and get plenty of rest. You will need to remain isolated until test results are noted. If they are negative, you will need remain isolated for 3 days after symptoms resolve. If they are positive, the health department will call you and direct quarantine/isolation timeframe. You may take ibuprofen 600 mg every 8 hours as needed for fever or pain. You may take Tylenol/acetaminophen 1000 mg every 8 hours as needed for fever or pain. Return for worse pain, fever, vomiting, weakness, breathing problems or other concerns as needed. KATHARINA ALEXANDER MD Jul 27, 2020 07:38
[2020-07-27 07:43] LABS: BASOPHILS # (AUTO) 0.1 10^3/uL (0.0-0.1); BASOPHILS % (AUTO) 1 % (0-10); EOSINOPHILS # (AUTO) 0.2 10^3/uL (0.0-0.3); EOSINOPHILS % (AUTO) 2 % (0-10); HEMATOCRIT 49 % (40-54); HEMOGLOBIN 16.8 g/dL (13.3-17.7); LYMPHOCYTES # (AUTO) 2.7 10^3/uL (1.0-4.0); LYMPHOCYTES % (AUTO) 29 % (12-44); MEAN CORPUSCULAR HEMOGLOBIN 30 pg (25-34); MEAN CORPUSCULAR HGB CONC 34 g/dL (32-36); MEAN CORPUSCULAR VOLUME 88 fL (80-99); MEAN PLATELET VOLUME 10.2 fL (9.0-12.2); MONOCYTES # (AUTO) 0.4 10^3/uL (0.0-1.0); MONOCYTES % (AUTO) 5 % (0-12); NEUTROPHILS # (AUTO) 5.8 10^3/uL (1.8-7.8); NEUTROPHILS % (AUTO) 64 % (42-75); PLATELET COUNT 243 10^3/uL (130-400); WHITE BLOOD COUNT 9.2 10^3/uL (4.3-11.0)
[2020-07-27 07:54] LABS: ALBUMIN 4.1 GM/DL (3.2-4.5); CHLORIDE 107 MMOL/L (98-107)
[2020-07-27 07:55] LABS: POTASSIUM 4.3 MMOL/L (3.6-5.0); SODIUM 141 MMOL/L (135-145)
[2020-07-27 07:56] LABS: CALCIUM 8.8 MG/DL (8.5-10.1)
[2020-07-27 07:57] LABS: GLUCOSE 187 MG/DL (70-105); TOTAL PROTEIN 7.2 GM/DL (6.4-8.2)
[2020-07-27 07:58] LABS: CARBON DIOXIDE 20 MMOL/L (21-32)
[2020-07-27 07:59] LABS: BILIRUBIN,TOTAL 0.6 MG/DL (0.1-1.0)
[2020-07-27 08:01] LABS: ALKALINE PHOSPHATASE 96 U/L (40-136); GFR ESTIMATED > 60
[2020-07-27 08:02] LABS: BUN/CREATININE RATIO 10
[2020-07-27 08:04] LABS: ALANINE AMINOTRANSFERASE 23 U/L (0-55)
--- NOTE | 2020-07-27 08:27 | Diagnostic Imaging Report ---
INDICATION: Chest pain. Comparison is made with prior examination from 08/18/2012. FINDINGS: The heart size, mediastinal configuration, and pulmonary vascularity are within normal limits. There is no pleural effusion, pneumothorax, or pneumonia. The osseous structures are unremarkable. IMPRESSION: No acute cardiopulmonary abnormality. Dictated by: Dictated on workstation # [id number]
[2020-07-27 08:48] VITALS: BP 105/62
== END 2020-07-27 08:48 | disposition home or self-care (01) ==
LOC: EDUNIT# 07:13 → ER 07:14
DX: R07.9 Chest pain, unspecified (principal); F32.9 Major depressive disorder, single episode, unspecified; F17.210 Nicotine dependence, cigarettes, uncomplicated; Z20.828 Contact with and (suspected) exposure to other viral communicable diseases
CPT/HCPCS: 71045; 80053; 84484; 85025; 85379; 86141; 93005; 99284; U0002; 36415; 87635

== ENCOUNTER 2021-04-25 15:48 | Emergency (ER) | payer MEDICAID ==
[~2021-04-25] VITALS: Ht 177.8 cm; Wt 113.6 kg
[~2021-04-25 15:48] MED LIST changes: +DOXY-311 PO; -DOXY100C42 PO
[2021-04-25 16:45] LABS: BILIRUBIN,URINE NEGATIVE (NEGATIVE); CLARITY,URINE CLEAR; COLOR,URINE YELLOW; GLUCOSE, URINE (UA) 1+ (NEGATIVE); KETONES,URINE NEGATIVE (NEGATIVE); LEUKOCYTE ESTERASE ,URINE NEGATIVE (NEGATIVE); NITRITE,URINE NEGATIVE (NEGATIVE); PROTEIN,URINE NEGATIVE (NEGATIVE)
[2021-04-25 16:52] LABS: BACTERIA,URINE NEGATIVE /HPF; WBC,URINE 0-2 /HPF
[2021-04-25] MEDS ORDERED: ORPHENADRINE 60 MG/2 ML (NORFLEX) AMP (ED ONLY) IM STA (17:25)
[2021-04-25] MEDS ORDERED: KETOROLAC 60 MG/2 ML VIAL IM STA (17:25)
--- NOTE | 2021-04-25 18:56 | ED Back Pain ---
General Chief Complaint: Back Problems Stated Complaint: LOWER BACK/LEG PAIN, FEET SWELLING Nursing Triage Note: TO ED PER W/C ACCOMPIED BY MOTHER/ PATIENT STATES THAT ONSET OF BACK PAIN ON TUE NOTICED BLOOD IN UNDERWEAR,BUT DENIES UTI SYMPTOMS. REPORTS BACK PAIN SO BAD THAT HE IS UNABLE TO MOVE AND HAS STAYED IN BED. NO INJURY (CARMEN WILLS) History of Present Illness Date Seen by Provider: Apr 25, 2021 Time Seen by Provider: 16:15 Initial Comments 35-year-old male presents for low back pain that has been present since 04/21/2021. When he awoke on this morning he noticed some blood from his penis. He has had no hematuria since then. He denies any discharge or dysuria. His having pain in his low back that is radiating into his thighs. He denies any specific injury to his back. He has not seen his primary care provider for the symptoms and he has been taking Tylenol or ibuprofen randomly. Location: Lumbar Spine, Paraspinous Muscles Timing/Duration: 5-6 Days Severity: Moderate Pain/Injury Location: Back Radiation: Upper Legs Method of Injury: Unknown Associated Symptoms: muscle spasms; No numbness in legs/feet, No tingling in legs/feet, No sensory/motor loss; lower back pain; No loss of bladder control, No loss of bowel control (CARMEN WILLS) Allergies and Home Medications Allergies Coded Allergies: No Known Drug Allergies (Unverified , 08/04/10) Home Medications Cyclobenzaprine HCl 5 Mg Tablet, 5 MG PO TID Prescribed by: REJI LUNA on 06/07/18 1451 Cyclobenzaprine HCl 10 Mg Tablet, 10 MG PO Q8H PRN for SPASMS Prescribed by: CARMEN WILLS on 04/25/211918 Doxycycline Monohydrate 100 Mg Capsule, 100 MG PO BID Prescribed by: LOPEZ CANCINO on 08/19/15 0908 Hydrocodone/Acetaminophen 1 Each Tablet, 1 TAB PO Q4H PRN for PAIN-MODERATE (5-7) Prescribed by: CARMEN WILLS on 04/25/211919 [Cymbalta] , Unknown Dose IM MONTHLY, (Reported) Patient Home Medication List Home Medication List Reviewed: Yes (CARMEN WILLS) Review of Systems Constitutional: no symptoms reported, see HPI Musculoskeletal: see HPI, back pain (CARMEN WILLS) All Other Systems Reviewed Negative Unless Noted: Yes (CARMEN WILLS) Past Roxqmck-Mnnmtw-Gsmrxc Hx Patient Social History Tobacco Use?: Yes Substance use?: Yes Substance type: Marijuana (CARMEN WILLS) Immunizations Up To Date Tetanus Booster (TDap): More than 5yrs (CARMEN WILLS) Past Medical History Surgeries: No Respiratory: No Cardiac: No Neurological: No Reproductive Disorders: No Genitourinary: No Gastrointestinal: Yes Hepatitis Musculoskeletal: No Endocrine: No HEENT: No Cancer: No Psychosocial: Yes Bipolar, Schizophrenia, Depression Integumentary: No Blood Disorders: No (CARMEN WILLS) Family Medical History Reviewed Nursing Family Hx (CARMEN WILLS) Patient reports no known family medical history. Physical Exam Vital Signs Vital Signs - First Documented 04/25/21 16:15 Temp 37.0 Pulse 88 Resp 18 B/P (MAP) 122/69 (86) Pulse Ox 99 O2 Delivery Room Air (AKI GRIER MD) Vital Signs Capillary Refill : Less Than 3 Seconds (CARMEN WILLS) Height, Weight, BMI Height: 5'11.00" Weight: 260lbs. 10.0oz. 117.237079nt; 35.00 BMI Method:Stated General Appearance: No Apparent Distress, WD/WN Neck: Full Range of Motion, Normal Inspection, Non Tender, Supple Cardiovascular: Regular Rate, Rhythm, No Edema, No Murmur, Normal Peripheral Pulses Respiratory: Chest Non Tender, Lungs Clear, Normal Breath Sounds Back: Normal Inspection, Decreased Range of Motion, Muscle Spasm, Vertebral Tenderness, Other (Per 5/5 L4-S1. Negative straight leg raising sign. Ambulates with an antalgic gait. Able to rise onto his toes and heels.) Neurologic/Psychiatric: Alert, Oriented x3, No Motor/Sensory Deficits, Normal Mood/Affect (CARMEN WILLS) Progress/Results/Core Measures Results/Orders Lab Results Laboratory Tests Test 04/25/21 16:38 Range/Units Urine Color YELLOW Urine Clarity CLEAR Urine pH 6.0 5-9 Urine Specific [place] 1.025 H 1.016-1.022 Urine Protein NEGATIVE NEGATIVE Urine Glucose (UA) 1+ H NEGATIVE Urine Ketones NEGATIVE NEGATIVE Urine Nitrite NEGATIVE NEGATIVE Urine Bilirubin NEGATIVE NEGATIVE Urine Urobilinogen 0.2 < = 1.0 MG/DL Urine Leukocyte Esterase NEGATIVE NEGATIVE Urine RBC (Auto) NEGATIVE NEGATIVE Urine RBC NONE /HPF Urine WBC 0-2 /HPF Urine Squamous Epithelial Cells NONE /HPF Urine Renal Epithelial Cells NONE /HPF Urine Crystals NONE /LPF Urine Bacteria NEGATIVE /HPF Urine Casts NONE /LPF Urine Mucus NEGATIVE /LPF Urine Culture Indicated NO (AKI GRIER MD) Vital Signs/I&O 04/25/21 04/25/21 16:15 19:45 Temp 37.0 Pulse 88 72 Resp 18 20 B/P (MAP) 122/69 (86) 124/69 Pulse Ox 99 97 O2 Delivery Room Air Room Air (AKI GRIER MD) Blood Pressure Mean: 86 Diagnostic Imaging Diagonstic Imaging: Xray Plain Films/CT/US/NM/MRI: pelvis, other (L Spine) Comments NAME: KAMARIADAM Jazmin [facility] REC#: [id number] PT STATUS: REG ER : 1985 PHYSICIAN: CARMEN WILLS ADMIT DATE: 04/25/21/ER Draft Date of Exam:04/25/21 PELVIS INDICATION: Pelvic pain, lower back pain after waking up. No acute injury. TECHNIQUE: AP pelvis 6:03 PM CORRELATION STUDY: None FINDINGS: The pelvis demonstrates no evidence for acute fracture. The pectineal lines and obturator rings are maintained. Pubic symphysis and SI joints are unremarkable. Hips unremarkable. IMPRESSION: Negative examination of the pelvis. Dictated on workstation # [id number] Dict: 04/25/21 1853 Trans: 04/25/21 1854 DO [id number] Interpreted by: FAITH COHN DO Electronically signed by: Reviewed: Reviewed by Me Diagonstic Imaging: Xray Plain Films/CT/US/NM/MRI: other (L Spine) Comments VINH: KAMARIADAM L [facility] REC#: [id number] PT STATUS: REG ER : 1985 PHYSICIAN: CARMEN WILLS ADMIT DATE: 04/25/21/ER Draft Date of Exam:04/25/21 LUMBAR SPINE - 2-3 VIEWS INDICATION: Pelvic pain, lower back pain after waking up. No acute injury. TECHNIQUE: AP, Lateral and spot imaging of the lumbar spine. CORRELATION STUDY: None. FINDINGS: There is straightening and very mild rightward rotation of the superior lumbar spine. Lumbar vertebral body heights are maintained. Slight asymmetric disc space narrowing at the L1-L2 levels with minimal endplate spurring and anterior superior L2 endplate. No acute bony abnormality demonstrated. IMPRESSION: No acute bony abnormality. Straightening of the lumbar lordosis can be owing to splinting and/or spasm versus simply patient positioning. Dictated on workstation # [id number] Dict: 04/25/21 1854 Trans: 04/25/[address] [facility] [id number] Interpreted by: KRISTIAN COHN Reviewed: Reviewed by Me (CARMEN WILLS) Departure Impression Primary Impression: Lumbar radiculopathy Additional Impressions: Back strain Qualified Codes: S39.012A - Strain of muscle, fascia and tendon of lower back, initial encounter Back pain Qualified Codes: M54.5 - Low back pain Disposition: 01 HOME, SELF-CARE Condition: Improved Departure-Patient Inst. Decision time for Depature: 19:00 (CARMEN WILLS) Referrals: [facility] [place] (PCP/Family) Primary Care Physician Patient Instructions: Low Back Pain (DC) Add. Discharge Instructions: Alternate heat and ice to your low back. Alternate between Tylenol 650 mg and ibuprofen 600 mg every 4 hours for pain. Use the hydrocodone only for extreme pain. Take the Flexeril for muscle spasms. Follow-up with your primary care provider if symptoms are not improving or wo rsen. Return to the emergency department for new, urgent healthcare needs. All discharge instructions reviewed with patient and/or family. Voiced understanding. Scripts Hydrocodone/Acetaminophen (Hydrocodone-Acetamin 5-325 mg) 1 Each Tablet 1 TAB PO Q4H PRN for PAIN-MODERATE (5-7), #20 TAB 0 Refills Prov: CARMEN WILLS 04/25/21 Cyclobenzaprine HCl (Cyclobenzaprine HCl) 10 Mg Tablet 10 MG PO Q8H PRN for SPASMS, #15 TAB 0 Refills Prov: CARMEN WILLS 04/25/21 ATTENDING PHYSICIAN NOTE: I was physically present as attending physician in the emergency department during the care of this patient, but I was not directly involved in the decision making or delivery of care for this patient. (AKI GRIER MD) CARMEN WILLS Apr 25, 2021 18:56 AKI GRIER MD Apr 26, 2021 07:37
--- NOTE | 2021-04-25 19:01 | Diagnostic Imaging Report ---
INDICATION: Pelvic pain, lower back pain after waking up. No acute injury. TECHNIQUE: AP, Lateral and spot imaging of the lumbar spine. CORRELATION STUDY: None. FINDINGS: There is straightening and very mild rightward rotation of the superior lumbar spine. Lumbar vertebral body heights are maintained. Slight asymmetric disc space narrowing at the L1-L2 levels with minimal endplate spurring and anterior superior L2 endplate. No acute bony abnormality demonstrated. IMPRESSION: No acute bony abnormality. Straightening of the lumbar lordosis can be owing to splinting and/or spasm versus simply patient positioning. Dictated by: Dictated on workstation # [id number]
[2021-04-25] MEDS ORDERED: RX-CYCLOBENZAPRINE 10 MG (FLEXERIL) TAB PPK#3 PO STA (19:16)
[2021-04-25] MEDS ORDERED: ACHD5005 PO (19:19)
[2021-04-25] MEDS ORDERED: CYCL10TA9 PO (19:19)
[2021-04-25 19:45] VITALS: BP 124/69
== END 2021-04-25 19:45 | disposition home or self-care (01) ==
LOC: EDUNIT# 15:48 → ER 15:50
DX: S39.012A Strain of muscle, fascia and tendon of lower back, initial encounter (principal); M54.16 Radiculopathy, lumbar region; X58.XXXA Exposure to other specified factors, initial encounter
CPT/HCPCS: 72100; 72170; 81000

== ENCOUNTER 2021-05-01 14:24 | Emergency (ER) | payer MEDICAID ==
[~2021-05-01] VITALS: Ht 180 cm; Wt 122.4 kg
[~2021-05-01 14:24] MED LIST changes: +ACHD5005 PO; +CYCL10TA9 PO
[2021-05-01] MEDS ORDERED: NALOXONE 2 MG/2 ML (NARCAN) SYR ONE (14:54)
[2021-05-01] MEDS ORDERED: NALOXONE 0.4 MG/ML 1 ML (NARCAN) VIAL ONE (14:54)
--- NOTE | 2021-05-01 14:56 | ED Back Pain ---
General Chief Complaint: Back Problems Stated Complaint: BACK PAIN Nursing Triage Note: PT PRESENTS TO ED VIA EMS FROM HOME WITH COMPLAINTS OF BACK PAIN X 1 1/2 WEEKS. PT HAS BEEN SEEN IN ED ON TUESDAY FOR SAME COMPLAINT. PT REPONDS TO VERBAL STIMULI BUT FALLS ASLEEP IF NOT STIMULATED. Source of Information: Patient Exam Limitations: No Limitations (REJI LUNA APRN) History of Present Illness Date Seen by Provider: May 01, 2021 Time Seen by Provider: 14:00 Initial Comments To ER by EMS from home with reports of midline low back pain that radiates down both legs for 1.5 weeks. He is very lethargic on arrival and states that he is only taken 2 Tylenol today and no other medications. He states that he is very tired because he has been up playing video games. No fevers or chills no back injury. Location: Lumbar Spine Timing/Duration: 2-3 Days Severity: Moderate Method of Injury: Unknown Modifying Factors: Worse With Movement (REJI LUNA APRN) Allergies and Home Medications Allergies Coded Allergies: No Known Drug Allergies (Unverified , 08/04/10) Patient Home Medication List Home Medication List Reviewed: Yes (REJI LUNA APRN) Cyclobenzaprine HCl (Cyclobenzaprine HCl) 5 Mg Tablet, 5 MG PO TID Prescribed by: REJI LUNA on 06/07/18 1451 Cyclobenzaprine HCl (Cyclobenzaprine HCl) 10 Mg Tablet, 10 MG PO Q8H PRN for SPASMS Prescribed by: CARMEN WILLS on 04/25/211918 Doxycycline Monohydrate (Doxycycline Monohydrate) 100 Mg Capsule, 100 MG PO BID Prescribed by: LOPEZ CANCINO on 08/19/15 0908 Hydrocodone/Acetaminophen (Hydrocodone-Acetamin 5-325 mg) 1 Each Tablet, 1 TAB PO Q4H PRN for PAIN-MODERATE (5-7) Prescribed by: CARMEN WILLS on 04/25/211919 Prednisone (Prednisone) 20 Mg Tab, 40 MG PO DAILY Prescribed by: REJI LUNA on 05/01/211818 [Cymbalta] , Unknown Dose IM MONTHLY, (Reported) Entered as Reported by: DEVON CORDERO on 08/19/15 0904 Review of Systems Constitutional: see HPI EENTM: see HPI Respiratory: no symptoms reported Cardiovascular: no symptoms reported Genitourinary: no symptoms reported Musculoskeletal: see HPI, back pain Skin: no symptoms reported (REJI LUNA APRN) Past Bdwytaz-Wyviqi-Fqpkld Hx Patient Social History Tobacco Use?: Yes Tobacco type used: Cigarettes Smoking Status: Current Everyday Smoker Substance use?: No Pt feels they are or have been: No (REJI LUNA APRN) Immunizations Up To Date Tetanus Booster (TDap): More than 5yrs (REJI LUNA APRN) Past Medical History Surgery/Hospitalization HX: PMH: BACK PAIN, BIPOLAR Surgeries: No Respiratory: No Cardiac: No Neurological: No Reproductive Disorders: No Genitourinary: No Gastrointestinal: Yes Hepatitis Musculoskeletal: No Endocrine: No HEENT: No Cancer: No Psychosocial: Yes Bipolar, Schizophrenia, Depression Integumentary: No Blood Disorders: No (REJI LUNA APRN) Family Medical History Patient reports no known family medical history. Physical Exam Vital Signs Vital Signs - First Documented 05/01/21 14:35 Temp 37.1 Pulse 89 Resp 18 B/P (MAP) 117/91 (100) Pulse Ox 96 (AKI GRIER MD) Vital Signs Capillary Refill : Less Than 3 Seconds (REJI LUNA APRN) Height, Weight, BMI Height: 5'11.00" Weight: 260lbs. 10.0oz. 117.030325ax; 37.00 BMI Method:Stated General Appearance: No Apparent Distress, WD/WN Neck: Full Range of Motion, Normal Inspection Cardiovascular: Regular Rate, Rhythm, Normal Peripheral Pulses Respiratory: No Accessory Muscle Use, No Respiratory Distress Gastrointestinal: Non Tender, Soft Extremity: Normal Capillary Refill, Normal Inspection Neurologic/Psychiatric: Alert, Other (Very lethargic, falls asleep during conversation. Apparent sleep apnea with desaturation down to 78%. Keeps eyes closed during conversation. Pinpoint pupils.) Skin: Normal Color, Warm/Dry (REJI LUNA APRN) Progress/Results/Core Measures Results/Orders Lab Results Laboratory Tests Test 05/01/21 14:37 05/01/21 16:30 05/01/21 16:35 Range/Units White Blood Count 14.9 H 4.3-11.0 10^3/uL Red Blood Count 4.44 4.30-5.52 10^6/uL Hemoglobin 12.8 L 13.3-17.7 g/dL Hematocrit 40 40-54 % Mean Corpuscular Volume 90 80-99 fL Mean Corpuscular Hemoglobin 29 25-34 pg Mean Corpuscular Hemoglobin Concent 32 32-36 g/dL Red Cell Distribution Width 13.2 10.0-14.5 % Platelet Count 427 H 130-400 10^3/uL Mean Platelet Volume 9.2 9.0-12.2 fL Immature Granulocyte % (Auto) 1 % Neutrophils (%) (Auto) 77 H 42-75 % Lymphocytes (%) (Auto) 14 12-44 % Monocytes (%) (Auto) 6 0-12 % Eosinophils (%) (Auto) 1 0-10 % Basophils (%) (Auto) 0 0-10 % Neutrophils # (Auto) 11.5 H 1.8-7.8 10^3/uL Lymphocytes # (Auto) 2.1 1.0-4.0 10^3/uL Monocytes # (Auto) 0.9 0.0-1.0 10^3/uL Eosinophils # (Auto) 0.2 0.0-0.3 10^3/uL Basophils # (Auto) 0.1 0.0-0.1 10^3/uL Immature Granulocyte # (Auto) 0.2 H 0.0-0.1 10^3/uL Neutrophils % (Manual) 78 % Lymphocytes % (Manual) 15 % Monocytes % (Manual) 4 % Eosinophils % (Manual) 0 % Basophils % (Manual) 0 % Band Neutrophils 3 % Percent Immature Platelet Fraction 2.0 0.0-7.6 % Polychromasia SLIGHT Erythrocyte Sedimentation Rate 109 H 0-15 MM/HR Sodium Level 138 135-145 MMOL/L Potassium Level 3.9 3.6-5.0 MMOL/L Chloride Level 102 98-107 MMOL/L Carbon Dioxide Level 23 21-32 MMOL/L Anion Gap 13 5-14 MMOL/L Blood Urea Nitrogen 13 7-18 MG/DL Creatinine 0.95 0.60-1.30 MG/DL Estimat Glomerular Filtration Rate 91 BUN/Creatinine Ratio 14 Glucose Level 122 H 70-105 MG/DL Calcium Level 9.5 8.5-10.1 MG/DL Corrected Calcium 10.1 8.5-10.1 MG/DL Total Bilirubin 0.3 0.1-1.0 MG/DL Aspartate Amino Transf (AST/SGOT) 11 5-34 U/L Alanine Aminotransferase (ALT/SGPT) 16 0-55 U/L Alkaline Phosphatase 71 40-136 U/L C-Reactive Protein High Sensitivity 22.94 H 0.00-0.50 MG/DL Total Protein 7.2 6.4-8.2 GM/DL Albumin 3.3 3.2-4.5 GM/DL Procalcitonin 0.18 H <0.10 NG/ML Thyroid Stimulating Hormone (TSH) 0.71 0.35-4.94 UIU/ML Free Thyroxine 0.93 0.70-1.48 NG/DL B-Type Natriuretic Peptide 39.0 <100.0 PG/ML Urine Color YELLOW Urine Clarity CLEAR Urine pH 6.5 5-9 Urine Specific [place] 1.015 L 1.016-1.022 Urine Protein NEGATIVE NEGATIVE Urine Glucose (UA) NEGATIVE NEGATIVE Urine Ketones NEGATIVE NEGATIVE Urine Nitrite NEGATIVE NEGATIVE Urine Bilirubin NEGATIVE NEGATIVE Urine Urobilinogen 4.0 < = 1.0 MG/DL Urine Leukocyte Esterase NEGATIVE NEGATIVE Urine RBC (Auto) NEGATIVE NEGATIVE Urine RBC NONE /HPF Urine WBC NONE /HPF Urine Squamous Epithelial Cells RARE /HPF Urine Crystals NONE /LPF Urine Bacteria NEGATIVE /HPF Urine Casts NONE /LPF Urine Mucus NEGATIVE /LPF Urine Culture Indicated NO Lactic Acid Level 1.70 0.50-2.00 MMOL/L Urine Opiates Screen NEGATIVE NEGATIVE Urine Oxycodone Screen NEGATIVE NEGATIVE Urine Methadone Screen NEGATIVE NEGATIVE Urine Propoxyphene Screen NEGATIVE NEGATIVE Urine Barbiturates Screen NEGATIVE NEGATIVE Ur Tricyclic Antidepressants Screen NEGATIVE NEGATIVE Urine Phencyclidine Screen NEGATIVE NEGATIVE Urine Amphetamines Screen POSITIVE H NEGATIVE Urine Methamphetamines Screen POSITIVE H NEGATIVE Urine Benzodiazepines Screen NEGATIVE NEGATIVE Urine Cocaine Screen NEGATIVE NEGATIVE Urine Cannabinoids Screen POSITIVE H NEGATIVE (AKI GRIER MD) Medications Given in ED Current Medications Medications Dose Ordered Sig/Rolando Route Start Time Stop Time Status Last Admin Dose Admin Ceftriaxone Sodium 1000 mg/ Sterile Water 10 ml @ 200 mls/hr ONCE ONCE IV 05/01/21 18:15 05/01/21 18:17 DC 05/01/21 18:36 200 MLS/HR Dexamethasone Sodium Phosphate 10 mg ONCE ONCE IV 05/01/21 18:15 05/01/21 18:16 DC 05/01/21 18:36 10 MG Naloxone HCl 0.4 mg ONCE ONCE IV 05/01/21 15:00 05/01/21 15:01 DC 05/01/21 15:00 0.4 MG (AKI GRIER MD) Vital Signs/I&O 05/01/21 05/01/21 14:35 19:07 Temp 37.1 Pulse 89 67 Resp 18 18 B/P (MAP) 117/91 (100) 141/91 Pulse Ox 96 98 (AKI GRIER MD) Blood Pressure Mean: 100 Diagnostic Imaging Diagonstic Imaging: Xray Comments NAME: [facility] REC#: [id number] PT STATUS: REG ER : 1985 PHYSICIAN: REJI LUNA APRN ADMIT DATE: 05/01/21/ER Draft Date of Exam:05/01/21 CT ABD/PELVIS WO(KIDNEY STONE) EXAMINATION: CT abdomen and pelvis without contrast, 05/01/2021. TECHNIQUE: Multiple contiguous axial images were obtained through the abdomen and pelvis without the use of intravenous contrast. Auto Exposure Controls were utilized during the CT exam to meet ALARA standards for radiation dose reduction. INDICATION: Complaining of back pain for the last week and a half. COMPARISON: 11/01/2013. FINDINGS: Visualized lung bases appear unremarkable. The nonopacified liver, gallbladder, spleen, adrenal glands, and pancreas are unremarkable but limited due to the lack of IV contrast. Kidneys are unremarkable with no nephrolithiasis or hydronephrosis appreciated. There are no ureteral stones. The appendix is unremarkable. There is diffuse fat stranding adjacent to the dome of the urinary bladder. There is a low-density area along the anterior border of the bladder, which is nonspecific and could be due to focal wall thickening. A mass is difficult to exclude without contrast. Findings could be due to focal cystitis, but clinical follow-up and imaging or direct visualization may be warranted if these findings do not resolve to exclude a mass. Correlation with urinalysis also recommended. There is no ascites or free air. There is mild diverticular disease without evidence for acute diverticulitis. There is no acute osseous abnormality. IMPRESSION: 1. Diffuse inflammatory change adjacent to the dome of the urinary bladder with adjacent thick-walled appearance to the dome and anterior aspects of the bladder, nonspecific, perhaps due to wall thickening secondary to inflammatory change with a mass not excluded. See above discussion and recommendations. Correlation with urinalysis also recommended as findings could be due to cystitis with a mass along the anterior border of the urinary bladder not excluded at this time. Otherwise, incidental findings as described above. Dictated on workstation # [id number] Dict: 05/01/21 1721 Trans: 05/01/21 1730 [id number] Interpreted by: LUZ MARIA ROY MD Electronically signed by: (REJI LUNA APRN) Departure Communication (Admissions) NAME: ADAM [facility]ITES [facility] REC#: [id number] PT STATUS: REG ER : 1985 PHYSICIAN: REJI LUNA APRN ADMIT DATE: 05/01/21/ER Signed Date of Exam:05/01/21 MRI LUMBAR SPINE W/O CONTRAST PROCEDURE: MRI lumbar spine. TECHNIQUE: Multiplanar, multisequence MRI of the lumbar spine was performed without contrast. INDICATION: Low back pain, unable to walk, leukocytosis. COMPARISON: Radiographs from 04/25/2021. FINDINGS: There is motion artifact on multiple sequences. The last well-formed disc space will be labeled L5-S1 for the purposes of this examination. Alignment is normal with no spondylolisthesis. Vertebral body heights are preserved. No acute fracture is seen. There is mild decreased T2 signal at L4-L5. No focal osseous lesion is seen. The conus terminates in the appropriate position. Soft tissues about the lumbar spine demonstrate no acute abnormality. Discs from T12-L1 down to L3-L4 demonstrate no significant disc bulge and there is no spinal canal or foraminal stenosis. At L4-L5, there is diffuse disc bulge with posterior annular fissure. There is no spinal canal stenosis. There is no foraminal stenosis. At L5-S1 there is a minimal disc bulge. There is no spinal canal or foraminal stenosis. IMPRESSION: Disc bulge with posterior annular fissure at L4-L5. No spinal canal or foraminal stenosis in the lumbar spine. Dictated by: Dictated on workstation # [id number] Dict: 05/01/21 1623 Trans: 05/01/[address] [facility] [id number] Interpreted by: ARLINE CRUZ MD Electronically signed by: ARLINE CRUZ MD 05/01/21 1708 Family Conversation 1816-Inflammatory markers are quite elevated but the cause is not clear. CT shows a mass or at least abnormal appearance of the dome of the bladder. The cause of this is not clear. He needs to follow-up with urology. Urinalysis does not show anything remarkable. There is no vertebral osteomyelitis or epidural abscess. Mother is at the bedside and will be taking him home. I did discuss with her and him the drug screen results after getting permission from him to discuss this in front of her. He agrees to discontinue methamphetamine use and they agree to follow-up with primary care in regards to getting referral for urology evaluation of abnormal bladder appearance on CT. Discussed with Dr. Beach on-call for hospitalist services, she agrees with this plan. NAME: ADAM BENITES [facility] REC#: [id number] PT STATUS: REG ER : 1985 PHYSICIAN: REJI LUNA APRN ADMIT DATE: 05/01/21/ER Draft Date of Exam:05/01/21 MRI LUMBAR SPINE W/O CONTRAST PROCEDURE: MRI lumbar spine. TECHNIQUE: Multiplanar, multisequence MRI of the lumbar spine was performed without contrast. INDICATION: Low back pain, unable to walk, leukocytosis. COMPARISON: Radiographs from 04/25/2021. FINDINGS: There is motion artifact on multiple sequences. The last well-formed disc space will be labeled L5-S1 for the purposes of this examination. Alignment is normal with no spondylolisthesis. Vertebral body heights are preserved. No acute fracture is seen. There is mild decreased T2 signal at L4-L5. No focal osseous lesion is seen. The conus terminates in the appropriate position. Soft tissues about the lumbar spine demonstrate no acute abnormality. Discs from T12-L1 down to L3-L4 demonstrate no significant disc bulge and there is no spinal canal or foraminal stenosis. At L4-L5, there is diffuse disc bulge with posterior annular fissure. There is no spinal canal stenosis. There is no foraminal stenosis. At L5-S1 there is a minimal disc bulge. There is no spinal canal or foraminal stenosis. IMPRESSION: Disc bulge with posterior annular fissure at L4-L5. No spinal canal or foraminal stenosis in the lumbar spine. Dictated on workstation # [id number] Dict: 05/01/21 1623 Trans: 05/01/21 1658 [facility] [id number] Interpreted by: ARLINE CRUZ MD Electronically signed by: (REJI LUNA APRN) Impression Primary Impression: Low back pain Additional Impressions: Methamphetamine use Lumbar radiculopathy Disposition: HOME, SELF-CARE Condition: Stable Departure-Patient Inst. Decision time for Depature: 18:07 (REJI LUNA APRN) Referrals: [facility] (PCP/Family) Primary Care Physician Patient Instructions: Low Back Pain in Adults Add. Discharge Instructions: 1. Follow-up with [facility] next week 2. Return to ER for any concerns 3. Quit using meth. This is not helping any of these problems. Follow-up with [facility] to discuss referral to urology for the abnormal appearance of your bladder on CT. All discharge instructions reviewed with patient and/or family. Voiced understanding. Scripts Prednisone (Prednisone) 20 Mg Tab 40 MG PO DAILY, #6 TAB 0 Refills Prov: REJI LUNA APRN 05/01/21 ATTENDING PHYSICIAN NOTE: I was physically present as attending physician in the emergency department during the care of this patient, but I was not directly involved in the decision making or delivery of care for this patient. (AKI GRIER MD) REJI LUNA APRN May 01, 2021 14:56 AKI GRIER MD May 01, 2021 20:26
[2021-05-01 14:59] LABS: EOSINOPHILS % (AUTO) 1 % (0-10); MEAN CORPUSCULAR VOLUME 90 fL (80-99); MEAN PLATELET VOLUME 9.2 fL (9.0-12.2)
[2021-05-01] MEDS ORDERED: NALOXONE 0.4 MG/ML 1 ML (NARCAN) VIAL IV ONE (15:00)
[2021-05-01 15:01] LABS: BASOPHILS # (AUTO) 0.1 10^3/uL (0.0-0.1); BASOPHILS % (AUTO) 0 % (0-10); EOSINOPHILS # (AUTO) 0.2 10^3/uL (0.0-0.3); HEMATOCRIT 40 % (40-54); HEMOGLOBIN 12.8 g/dL (13.3-17.7); LYMPHOCYTES # (AUTO) 2.1 10^3/uL (1.0-4.0); LYMPHOCYTES % (AUTO) 14 % (12-44); MEAN CORPUSCULAR HEMOGLOBIN 29 pg (25-34); MEAN CORPUSCULAR HGB CONC 32 g/dL (32-36); MONOCYTES # (AUTO) 0.9 10^3/uL (0.0-1.0); MONOCYTES % (AUTO) 6 % (0-12); NEUTROPHILS # (AUTO) 11.5 10^3/uL (1.8-7.8); NEUTROPHILS % (AUTO) 77 % (42-75); PLATELET COUNT 427 10^3/uL (130-400); WHITE BLOOD COUNT 14.9 10^3/uL (4.3-11.0)
[2021-05-01 15:03] LABS: ALBUMIN 3.3 GM/DL (3.2-4.5); POTASSIUM 3.9 MMOL/L (3.6-5.0)
[2021-05-01 15:04] LABS: CALCIUM 9.5 MG/DL (8.5-10.1)
[2021-05-01 15:06] LABS: TOTAL PROTEIN 7.2 GM/DL (6.4-8.2)
[2021-05-01 15:07] LABS: BILIRUBIN,TOTAL 0.3 MG/DL (0.1-1.0)
[2021-05-01 15:09] LABS: CREATININE SERUM 0.95 MG/DL (0.60-1.30)
[2021-05-01 15:18] LABS: BAND NEUTROPHILS 3 %; BASOPHILS % (MANUAL) 0 %; EOSINOPHILS % (MANUAL) 0 %; ERYTHROCYTE SEDIMENTATION RATE 109 MM/HR (0-15); LYMPHOCYTES % (MANUAL) 15 %; MONOCYTES % (MANUAL) 4 %; NEUTROPHILS % (MANUAL) 78 %; POLYCHROMASIA SLIGHT
--- NOTE | 2021-05-01 15:23 | Diagnostic Imaging Report ---
INDICATION: Weakness. TECHNIQUE: Frontal chest obtained at 03:18 p.m. and compared to 07/27/2020. FINDINGS: Heart and mediastinal silhouette are normal in appearance. The lungs are clear. There is no pneumothorax or pleural fluid. IMPRESSION: Negative chest. Dictated by: Dictated on workstation # [id number]
[2021-05-01] MEDS ORDERED: LACTATED RINGERS 1,000 ML IV SCH (16:00)
[2021-05-01 16:50] LABS: BILIRUBIN,URINE NEGATIVE (NEGATIVE); CLARITY,URINE CLEAR; COLOR,URINE YELLOW; GLUCOSE, URINE (UA) NEGATIVE (NEGATIVE); KETONES,URINE NEGATIVE (NEGATIVE); LEUKOCYTE ESTERASE ,URINE NEGATIVE (NEGATIVE); NITRITE,URINE NEGATIVE (NEGATIVE); PH,URINE 6.5 (5-9); PROTEIN,URINE NEGATIVE (NEGATIVE)
[2021-05-01 16:56] LABS: BACTERIA,URINE NEGATIVE /HPF; SQUAMOUS EPITHELIAL CELL,UR RARE /HPF
--- NOTE | 2021-05-01 16:58 | Diagnostic Imaging Report ---
PROCEDURE: MRI lumbar spine. TECHNIQUE: Multiplanar, multisequence MRI of the lumbar spine was performed without contrast. INDICATION: Low back pain, unable to walk, leukocytosis. COMPARISON: Radiographs from 04/25/2021. FINDINGS: There is motion artifact on multiple sequences. The last well-formed disc space will be labeled L5-S1 for the purposes of this examination. Alignment is normal with no spondylolisthesis. Vertebral body heights are preserved. No acute fracture is seen. There is mild decreased T2 signal at L4-L5. No focal osseous lesion is seen. The conus terminates in the appropriate position. Soft tissues about the lumbar spine demonstrate no acute abnormality. Discs from T12-L1 down to L3-L4 demonstrate no significant disc bulge and there is no spinal canal or foraminal stenosis. At L4-L5, there is diffuse disc bulge with posterior annular fissure. There is no spinal canal stenosis. There is no foraminal stenosis. At L5-S1 there is a minimal disc bulge. There is no spinal canal or foraminal stenosis. IMPRESSION: Disc bulge with posterior annular fissure at L4-L5. No spinal canal or foraminal stenosis in the lumbar spine. Dictated by: Dictated on workstation # [id number]
[2021-05-01 17:01] LABS: AMPHETAMINE SCREEN, URINE POSITIVE (NEGATIVE); BARBITURATE SCREEN URINE NEGATIVE (NEGATIVE); BENZODIAZEPINES SCREEN URINE NEGATIVE (NEGATIVE); CANNABINOID SCREEN, URINE POSITIVE (NEGATIVE); COCAINE SCREEN URINE NEGATIVE (NEGATIVE); METHADONE STAT NEGATIVE (NEGATIVE); METHAMPHETAMINE SCREEN URINE S POSITIVE (NEGATIVE); OPIATE SCREEN URINE NEGATIVE (NEGATIVE); OXYCODONE STAT NEGATIVE (NEGATIVE); PROPOXYPHENE STAT NEGATIVE (NEGATIVE); TRICYCLIC ANTIDEPRESSANTS SCRE NEGATIVE (NEGATIVE)
[2021-05-01 17:16] LABS: FREE T4 (FREE THYROXINE) 0.93 NG/DL (0.70-1.48)
--- NOTE | 2021-05-01 17:30 | Diagnostic Imaging Report ---
EXAMINATION: CT abdomen and pelvis without contrast, 05/01/2021. TECHNIQUE: Multiple contiguous axial images were obtained through the abdomen and pelvis without the use of intravenous contrast. Auto Exposure Controls were utilized during the CT exam to meet ALARA standards for radiation dose reduction. INDICATION: Complaining of back pain for the last week and a half. COMPARISON: 11/01/2013. FINDINGS: Visualized lung bases appear unremarkable. The nonopacified liver, gallbladder, spleen, adrenal glands, and pancreas are unremarkable but limited due to the lack of IV contrast. Kidneys are unremarkable with no nephrolithiasis or hydronephrosis appreciated. There are no ureteral stones. The appendix is unremarkable. There is diffuse fat stranding adjacent to the dome of the urinary bladder. There is a low-density area along the anterior border of the bladder, which is nonspecific and could be due to focal wall thickening. A mass is difficult to exclude without contrast. Findings could be due to focal cystitis, but clinical follow-up and imaging or direct visualization may be warranted if these findings do not resolve to exclude a mass. Correlation with urinalysis also recommended. There is no ascites or free air. There is mild diverticular disease without evidence for acute diverticulitis. There is no acute osseous abnormality. IMPRESSION: 1. Diffuse inflammatory change adjacent to the dome of the urinary bladder with adjacent thick-walled appearance to the dome and anterior aspects of the bladder, nonspecific, perhaps due to wall thickening secondary to inflammatory change with a mass not excluded. See above discussion and recommendations. Correlation with urinalysis also recommended as findings could be due to cystitis with a mass along the anterior border of the urinary bladder not excluded at this time. Otherwise, incidental findings as described above. Dictated by: Dictated on workstation # [id number]
[2021-05-01] MEDS ORDERED: cefTRIAXone 1,000 MG in WATER (STERILE) FOR INJECTION 10 ML IV ONE (18:15)
[2021-05-01] MEDS ORDERED: PRD20T PO (18:19)
[2021-05-01 19:07] VITALS: BP 141/91
== END 2021-05-01 19:07 | disposition home or self-care (01) ==
LOC: EDUNIT# 14:24 → ER 14:29
DX: F15.90 Other stimulant use, unspecified, uncomplicated (principal); M54.16 Radiculopathy, lumbar region; F32.9 Major depressive disorder, single episode, unspecified; F17.210 Nicotine dependence, cigarettes, uncomplicated; Z79.899 Other long term (current) drug therapy
CPT/HCPCS: 36415; 71045; 72148; 74176; 80053; 80306; 81000; 83605; 83880; 84145; 84439; 84443; 85007; 85027; 85652; 86141; 87040; 87077; 87186